=== PATIENT | male | born 1930 | race Caucasian/White ===

== ENCOUNTER 2017-09-08 09:56 | Emergency (ER) | payer OTHER ==
[~2017-09-08] VITALS: Ht 175.3 cm; Wt 58.1 kg
[2017-09-08] MEDS ORDERED: COZAAR100 MG (10:13)
== END 2017-09-08 15:45 | disposition home or self-care (01) ==
LOC: ER 09:56
DX: N40.0 Benign prostatic hyperplasia without lower urinary tract symptoms (principal)

== ENCOUNTER 2018-01-01 10:49 | Outpatient (CLI) | payer OTHER ==
[~2018-01-01 10:49] MED LIST: COZAAR100 MG
== END 2018-01-01 10:56 | disposition home or self-care (01) ==
LOC: TOM 10:49
DX: R07.89 Other chest pain (principal)